=== PATIENT | female | born 1935 | race Caucasian/White ===

== ENCOUNTER → 2022-02-24 | Outpatient (CLI) | payer MEDICARE ==
--- NOTE | 2022-02-27 13:57 | PE ---
EXAMINATION TYPE: PET CT fusion skull to thigh DATE OF EXAM: 02/24/2022 COMPARISON: Outside chest CT February 12, 2022. Outside PET CT July 24, 2017 HISTORY: Solitary pulmonary nodule, lung mass. Recent abnormal CT. TECHNIQUE: Following the intravenous administration of 11.61 mCi of F-18 FDG, whole body images are performed from the skull base to the midthigh. Images are reviewed on the computer in the coronal, a xial, and sagittal planes. Reconstructed rotating images are created on independent workstation and reviewed on the computer. A localization and attenuation correction CT is performed in conjunction with the PET scan. Blood glucose level equals 96. SCAN: Initial Scan FINDINGS: SKULL BASE AND NECK: No areas of abnormal hypermetabolic uptake. CHEST, MEDIASTINUM, AND HILAR REGION: [id number] underlying emphysematous changes redemonstrate d. There is 2.2 x 1.2 cm right middle lobe nodule axial image 93 redemonstrated slightly larger from outside 2018 PET/CT, max SUV is 2.74 versus reported 3.8 on outside prior report. No additional areas of abnormal hypermetabolic uptake identified. ABDOMEN AND PELVIS: Abnormal poorly distended stomach with severe wall thickening and mild diffuse in creased hypermetabolic uptake. Normal excretion is present. Patient has little intra-abdominal fat. B ladder is decompressed to the right of midline due to enlarging left anterior pelvic mass measuring 8.1 x 7.0 cm axial image 172. Soft tissue lesion along the superior left anterior aspect of this cyst ic lesion is redemonstrated could reflect displaced uterus. Small subcentimeter focus of abnormal hyp ermetabolic uptake right presacral region image 159 of uncertain etiology possibly corresponds to bow el. The max SUV at this level is 4.49. No additional areas of abnormal hypermetabolic uptake. OSSEOUS STRUCTURES: No areas of abnormal hypermetabolic uptake. OTHER CT: There is dextroconvex scoliosis with multilevel vertebroplasty. Severe calcified plaque of the aorta extends into the iliac branch vessels. There is moderate rectal colonic fecal stasis. There are sigmoid colonic diverticula. Severe three-vessel coronary artery calcification is present. Mild left atrial dilatation. Exaggerate d thoracic kyphosis. Moderate to severe calcified plaque bilateral carotid bulb level. IMPRESSION: 1. Slightly larger right middle lobe nodule has slightly diminished Max SUV versus outside 2018 PET/C T report suggesting benign etiology. Interval growth however remains suspicious. 2. Enlarging left pelvic likely left ovarian cystic mass worrisome for neoplasm. Local mass effect is present. Advise gynecology oncology referral for further evaluation and/or treatment. 3. Subcentimeter mildly hypermetabolic focus right presacral region should be correlated with diagnos tic CT to exclude adenopathy or neoplasm at this level.
== END | disposition home or self-care (01) ==
LOC: RADPETMAIN 15:24
PROVIDERS: ATTEND Radiology Radiation Oncology
DX: R91.8 Other nonspecific abnormal finding of lung field (principal)
CPT/HCPCS: 78815; A9552

== ENCOUNTER → 2023-11-01 | Outpatient (CLI) | payer MEDICARE ==
--- NOTE | 2023-11-01 15:33 | XR ---
EXAMINATION TYPE: XR chest 2V DATE OF EXAM: 11/01/2023 COMPARISON: NONE TECHNIQUE: PA and lateral views submitted. HISTORY: Pulmonary nodule FINDINGS: Since limited positioning and severe rotation. The heart is enlarged and there is emphysematous dhillon es with biapical pleural thickening. No overt failure. Limited inspiration. Degenerative changes spin e with multiple compression deformities and evidence of previous vertebroplasty. Assessment for pulmo nary nodule limited. There is a patchy density in the right middle lobe which could be secondary to s uperimposed structures from rotation. Heart size normal and no overt failure. Osseous structures demo nstrate hypertrophic and degenerative changes of the spine. Generalized demineralization. IMPRESSION: 1. Limited exam due to positioning. The right middle lobe nodule seen by PET scan is not as well seen by standard x-ray and could be evaluated with CT scan.
== END | disposition home or self-care (01) ==
LOC: RADXRMAIN 15:06
PROVIDERS: ATTEND Internal Medicine
DX: R91.1 Solitary pulmonary nodule (principal)
CPT/HCPCS: 71046